=== PATIENT | female | born 1995 | race Hispanic/Latino ===

== ENCOUNTER 2024-04-05 02:08 | Emergency (ER) | payer BC ==
[~2024-04-05] VITALS: Ht 167.6 cm; Wt 97.5 kg
[2024-04-05 02:38] LABS: APPEARANCE,URINE CLEAR (CLEAR); BILIRUBIN,URINE NEGATIVE (NEGATIVE); COLOR,URINE COLORLESS (YELLOW); GLUCOSE, URINE (UA) NEGATIVE (NEGATIVE); KETONES,URINE NEGATIVE (NEGATIVE); LEUKOCYTE ESTERASE ,URINE NEGATIVE Leu/uL (NEGATIVE); NITRATE,URINE NEGATIVE (NEGATIVE); OCCULT BLOOD,URINE MODERATE (NEGATIVE); PH,URINE 6.5 (5.0-8.0); PROTEIN,URINE 300 mg/dL (NEGATIVE); UROBILINOGEN,URINE 0.2 mg/dL (0.2-1.0)
[2024-04-05 02:40] LABS: HCG,QUALITATIVE URINE NEGATIVE (NEGATIVE)
[2024-04-05 02:42] LABS: ADD UA MICROSCOPIC YES
[2024-04-05 02:43] LABS: SQUAMOUS EPITHELIAL CELL,UR RARE /HPF (0-2); WBC,URINE 0-1 /HPF (0-1)
--- NOTE | 2024-04-05 02:55 | NUR ---
patient to ultrasound
[2024-04-05] MEDS: morPHINE 4 MG SYG IVP ONE (03:12)
[2024-04-05] MEDS: ondanSETRON 4MG INJ IVP ONE (03:12)
[2024-04-05] MEDS: LACTATED RINGERS 1000ML 1,000 ML IV ONE (03:13)
[2024-04-05 03:24] LABS: BASOPHILS # (AUTO) 0.07 K/uL (0.00-0.20); BASOPHILS % (AUTO) 0.6 % (0.0-5.0); EOSINOPHILS # (AUTO) 0.31 K/uL (0.00-0.70); EOSINOPHILS % (AUTO) 2.6 % (0.0-8.0); HEMATOCRIT 37.8 % (36-48); IMMATURE GRANULOCYTE ABSOLUTE 0.05 K/uL (0-1); LYMPHOCYTES # (AUTO) 2.7 K/uL (1.0-4.8); LYMPHOCYTES % (AUTO) 22.3 % (21.0-51.0); MEAN CORPUSCULAR HEMOGLOBIN 27.9 pg (27.0-33.0); MEAN CORPUSCULAR HGB CONC 34.1 g/dL (32.0-36.0); MEAN CORPUSCULAR VOLUME 81.8 fL (79-99); MONOCYTES # (AUTO) 0.8 K/uL (0.1-1.0); MONOCYTES % (AUTO) 6.7 % (3.0-13.0); NEUTROPHILS # (AUTO) 8.1 K/uL (1.8-7.7); NEUTROPHILS % (AUTO) 67.4 % (40.0-77.0); PLATELET COUNT (AUTO) 330 K/uL (130-400); RED BLOOD CELL COUNT(AUTO) 4.62 MIL/uL (4.00-5.50); RED CELL DISTRIBUTION WIDTH 12.2 % (11.0-15.5); WHITE BLOOD COUNT (AUTO) 12.1 K/uL (4.8-10.8)
[2024-04-05 03:34] LABS: POTASSIUM 4.1 mmol/L (3.5-5.1)
[2024-04-05 03:39] LABS: BILIRUBIN,TOTAL 0.5 mg/dL (0.2-1.0); TOTAL PROTEIN, SERUM 6.2 g/dL (6.0-8.3)
[2024-04-05] MEDS ORDERED: ONDA-243 PO (05:22)
[2024-04-05] MEDS ORDERED: LOPE2CAP PO (05:22)
--- NOTE | 2024-04-05 05:23 | ERN ---
ED Note History of Present Illness Stated Complaint: DIARRHEA Chief Complaint: Diarrhea Time Seen by MD: 02:20 Allergies: Coded Allergies: promethazine (Unverified Allergy, Unknown, 04/05/24) Past Medical History Dictation 29-year-old female with past medical history of cyclic diarrhea, chronic kidney disease presents via private vehicle with concerns for presyncope. Patient states she has been having diarrhea for several hours without much relief. Patient has had seven diarrhea or bowel movements. Patient also reports concomitant nausea and vomiting. Patient denies fevers, nasal congestion, productive cough, chest pain, abdominal pain Past Medical History: Asthma, Hypertension, Renal Disese Surgical History: Other Surgical History Other: ENDOMETREOSIS SX LMP: Mar 31, 2024 Review of System Dictation See HPI Initial Vital Sign VS Vital Signs Date Time Temp Pulse Resp B/P (MAP) Pulse Ox O2 Delivery O2 Flow Rate FiO2 04/05/24 02:10 98.4 80 18 150/106 97 Room Air 0 04/05/24 03:24 21 Physical Exam Dictation Chronically ill-appearing, acutely weak appearing, abdomen is soft, nontender, non peritoneal, lungs clear to auscultation, normal oropharynx, regular heart rate and rhythm Results (Laboratory/Radiology) Laboratory/Radiology Laboratory Tests Test 04/05/24 02:29 04/05/24 03:13 Urine Color COLORLESS (YELLOW) Urine Appearance CLEAR (CLEAR) Urine pH 6.5 (5.0-8.0) Urine Specific [place] 1.011 (1.001-1.031) Urine Protein 300 mg/dL (NEGATIVE) H Urine Glucose (UA) NEGATIVE mg/dL (NEGATIVE) Urine Ketones NEGATIVE mg/dL (NEGATIVE) Urine Occult Blood MODERATE (NEGATIVE) H Urine Nitrate NEGATIVE (NEGATIVE) Urine Bilirubin NEGATIVE mg/dL (NEGATIVE) Urine Urobilinogen 0.2 mg/dL (0.2-1.0) Urine Leukocyte Esterase NEGATIVE [place]/uL Urine RBC 11-25 /HPF (0-1) H Urine WBC 0-1 /HPF (0-1) Urine Squamous Epithelial Cells RARE /HPF (0-2) Urine Bacteria None /HPF (None Seen) Urine HCG, Qualitative NEGATIVE (NEGATIVE) White Blood Count 12.1 K/uL (4.8-10.8) H Red Blood Count 4.62 MIL/uL (4.00-5.50) Hemoglobin 12.9 g/dL (12.0-16.0) Hematocrit 37.8 % (36-48) Mean Corpuscular Volume 81.8 fL (79-99) Mean Corpuscular Hemoglobin 27.9 pg (27.0-33.0) Mean Corpuscular Hemoglobin Concent 34.1 g/dL (32.0-36.0) Red Cell Distribution Width 12.2 % (11.0-15.5) Platelet Count 330 K/uL (130-400) Mean Platelet Volume 8.8 fL (7.5-10.5) Immature Granulocyte % (Auto) 0.4 % (0-1) Neutrophils (%) (Auto) 67.4 % (40.0-77.0) Lymphocytes (%) (Auto) 22.3 % (21.0-51.0) Monocytes (%) (Auto) 6.7 % (3.0-13.0) Eosinophils (%) (Auto) 2.6 % (0.0-8.0) Basophils (%) (Auto) 0.6 % (0.0-5.0) Neutrophils # (Auto) 8.1 K/uL (1.8-7.7) H Lymphocytes # (Auto) 2.7 K/uL (1.0-4.8) Monocytes # (Auto) 0.8 K/uL (0.1-1.0) Eosinophils # (Auto) 0.31 K/uL (0.00-0.70) Basophils # (Auto) 0.07 K/uL (0.00-0.20) Absolute Immature Granulocyte (auto 0.05 K/uL (0-1) Nucleated Red Blood Cells 0.0 % (0.0-0.19) Sodium Level 138 mmol/L (136-145) Potassium Level 4.1 mmol/L (3.5-5.1) Chloride Level 104 mmol/L (101-111) Carbon Dioxide Level 24 mmol/L (21-32) Blood Urea Nitrogen 25 mg/dL (7-18) H Creatinine 2.0 mg/dL (0.5-1.0) H Glomerular Filtration Rate Calc 34 mL/min (>90) Random Glucose 98 mg/dL (70-105) Total Calcium 8.8 mg/dL (8.5-10.1) Total Bilirubin 0.5 mg/dL (0.2-1.0) Aspartate Amino Transf (AST/SGOT) 13 U/L (10-37) Alanine Aminotransferase (ALT/SGPT) 24 U/L (12-78) Alkaline Phosphatase 105 U/L (50-136) Total Protein 6.2 g/dL (6.0-8.3) Albumin 3.0 g/dL (3.5-5.0) L Lipase 43 U/L (16-77) ED Course ED Course Orders Procedure Category Date Status Time Cbc With Differential LAB 04/05/24 Complete 02:20 Comprehensive LAB 04/05/24 Complete Metabolic Panel 02:20 ,Urine Test LAB 04/05/24 Complete 02:20 Urinalysis Profile LAB 04/05/24 Complete 02:20 Lactated Ringers PHA 04/05/24 Complete 1000ml (Lactated 02:30 Morphine 4mg Syg PHA 04/05/24 Complete (Morphine 4mg Syg) 02:30 Ondansetron 4mg Inj PHA 04/05/24 Complete (Zofran 4mg Inj) 02:30 Ct Abdomen/Pelvis W/O CT 04/05/24 Taken Contrast 02:20 Lipase LAB 04/05/24 Complete 02:20 Current Medications Medications (Trade) Dose Ordered Sig/Mattie Route PRN Reason Start Time Stop Time Status Last Admin Dose Admin Lactated Ringer's 1,000 ml @ 0 mls/hr ONCE ONCE IV 04/05/24 02:30 04/05/24 02:31 DC 04/05/24 03:13 Morphine Sulfate (morPHINE 4MG SYG) 4 mg ONCE ONCE IVP 04/05/24 02:30 04/05/24 02:31 DC 04/05/24 03:12 Ondansetron HCl (zoFRAN 4MG INJ) 4 mg ONCE ONCE IVP 04/05/24 02:30 04/05/24 02:31 DC 04/05/24 03:12 Vital Signs Date Time Temp Pulse Resp B/P (MAP) Pulse Ox O2 Delivery O2 Flow Rate FiO2 04/05/24 03:24 97.9 72 18 124/80 99 Room Air* 0 21 04/05/24 02:10 98.4 80 18 150/106 97 Room Air 0 Medical Decision Making MDM ddx: EVER versus flu versus COVID versus ectopic versus acute pancreatitis Lipase within normal limits. Doubt acute pancreatitis. HCG negative for . Doubt ectopic . UA negative for infection. Doubt UTI. CT abdomen pelvis shows no acute intra-abdominal findings. Doubt appendicitis. Doubt small-bowel obstruction. White blood cell count within normal limits. Doubt bacterial infection. Chemistry shows no for EVER. Patient is given IV fluids and symptoms improved. Rapid flu negative. Rapid COVID negative Upon re-evaluation, patient remains comfortable. Discussed ED workup patient. Recommend close primary care follow up. Return precautions given. Invited answered all questions prior discharge. DX & DISP Disposition: Discharge Departure Impression: Primary Impression: Acute nausea with nonbilious vomiting Additional Impressions: Acute diarrhea, EVER (acute kidney injury) Critical Time: 30 minutes Condition: Stable Scripts Loperamide HCl (Loperamide) 2 Mg Capsule 2 MG PO 5XDAY for diarrhea, #10 CAP 0 Refills Take 2 tablets initially and then 1 tablet with every loose bowel movement. Prov: ANSELMO SHERIFF DO 04/05/24 Ondansetron (Ondansetron Odt) 4 Mg Tab.rapdis 4 MG PO ONCE, #30 TAB Prov: ANSELMO SHERIFF DO 04/05/24 Additional Instructions: Please return to emergency department immediately if you develop sudden loss of consciousness, sudden weakness, can not eat or drink, if continuous nausea and vomiting despite medications. Please follow up primary care physician within the next available appointment. Please drink lots of fluids. Referrals: JEANCARLOS STAHL MD (PCP) ANSELMO SHERIFF DO Apr 05, 2024 05:23
[2024-04-05 05:26] VITALS: BP 115/65; PULSE 75; RESP 18; TEMP 98; O2SAT 98
--- NOTE | 2024-04-05 08:20 | HMCIMG ---
Exam Type: CT ABDOMEN/PELVIS W/O CONTRAST Clinical Information: ABD PAIN Comparison: None CT Dose Index (CTDI): 10.20 mGy Dose Length Product (DLP): 530.00 total mGy-cm PROTOCOL: Routine noncontrast helical scanning of the abdomen and pelvis was performed at 5mm collimation. Findings: No evidence of nephro or ureterolithiasis is found. No hydronephrosis or ureteral dilatation is seen. The lung bases are clear. The stomach is unremarkable. It shows no wall thickening. No gross ulceration is seen. It is not overly distended. There are no surrounding inflammatory changes. No wall lesions are identified to suggest cancer. The spleen is unremarkable. It is not enlarged. The pancreas shows normal anatomy. It is not fatty replaced. It shows no lesions. The pancreatic duct is not dilated. The gallbladder is unremarkable. It shows no cholelithiasis. The gallbladder wall is normal in thickness. There is no pericholecystic fluid. The is no acute or chronic inflammation noted. The adrenal glands are unremarkable. There is no enlargement. No lesions are noted. The liver is unremarkable. It shows no focal masses. The appendix is unremarkable. It shows no evidence of inflammation. No appendicolith is seen. The small bowel is unremarkable. There is no evidence of dilatation to suggest obstruction. No evidence of adynamic ileus is seen. There is no small bowel wall thickening to suggest enteritis. The colon is unremarkable. The urinary bladder is unremarkable. There is no wall thickening to suggest tumor or inflammation. There are no intraluminal calculi. There are no diverticula. There is no evidence of chronic bladder outlet obstruction. There is no evidence of urinary bladder distention to suggest urinary retention. The other pelvic structures are unremarkable. The bony and vascular structures are unremarkable for the patient's age. IMPRESSION: NEGATIVE CT SCAN OF THE ABDOMEN AND PELVIS. NO RENAL STONES. NO ACUTE PATHOLOGY OR INFLAMMATION SEEN. This study was performed using dose reduction techniques to include automated exposure control and/or adjustment of the mA and/or kV according to patient size.
== END 2024-04-05 05:40 | disposition home or self-care (01) ==
LOC: EDH 02:08
DX: N17.9 Acute kidney failure, unspecified (principal); I12.9 Hypertensive chronic kidney disease with stage 1 through stage 4 chronic kidney disease, or unspecified chronic kidney disease; N18.9 Chronic kidney disease, unspecified; J45.909 Unspecified asthma, uncomplicated
CPT/HCPCS: 99284; 74176; 96374; 96375; 80053; 83690; 85025; 81001; 81025; 36415; J7120; J2405; J2270

== ENCOUNTER 2024-12-13 01:27 | Emergency (ER) | payer BC ==
[~2024-12-13] VITALS: Ht 167.6 cm; Wt 96.2 kg
[~2024-12-13 01:27] MED LIST: LOPE2CAP PO; ONDA-243 PO
--- NOTE | 2024-12-13 01:33 | NUR ---
UA CUP PROVIDED
[2024-12-13] MEDS: LACTATED RINGERS 1000ML IV STA (02:03)
--- NOTE | 2024-12-13 02:09 | ERN ---
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 She is unable to sleep and comes in for symptom relief. No fevers or chills no emesis no diarrhea. She is wondering if she is dehydrated. Her urine is concentrated and frequent. Allergies: Coded Allergies: promethazine (Unverified Allergy, Unknown, 04/05/24) Home Meds Active Scripts Loperamide HCl (Loperamide) 2 Mg Capsule, 2 MG PO 5XDAY for diarrhea, #10 CAP 0 Refills Take 2 tablets initially and then 1 tablet with every loose bowel movement. Prov:CARRIEZAYANSELMO Jonathan RFEEMAN 04/05/24 Ondansetron (Ondansetron Odt) 4 Mg Tab.rapdis, 4 MG PO ONCE, #30 TAB Prov:SHARITAANSELMO Jonathan FREEMAN 04/05/24 Past Medical History Past Medical History: Asthma, Hypertension, Renal Disese Medical History Other: IgA nephropathy Past Surgical History: Other Surgical History Other: ENDOMETREOSIS SX Constitutional: (-) chills, (-) diaphoresis, (-) fever, (-) malaise, (-) weakness, (-) other documentation EENTM: (-) eye pain, (-) blurred vision, (-) tearing, (-) double vision, (-) ear pain, (-) ear discharge, (-) nose pain, (-) nose congestion, (-) throat pain, (-) Throat swelling, (-) mouth pain, (-) tooth pain, (-) mouth swelling, (-) other documentation Respiratory: (-) cough, (-) orthopnea, (-) short of breath, (-) stridor, (-) w heezing, (-) other documentation Cardiovascular: (-) chest pain, (-) edema, (-) palpitations, (-) syncope, (-) dyspnea on exertion, (-) other documentation Gastrointestinal/Abdominal: (+) nausea Genitourinary: (-) vaginal discharge, (-) vaginal bleeding, (-) dysuria, (-) frequency, (-) hematuria, (-) pain, (-) other documentation Physical Exam General Appearance: (+) mild distress Orientation: (+) alert, (+) oriented x 3 Head/Face Trauma: No Eye: bilateral eye normal inspection, bilateral eye PERRL, bilateral eye EOMI Ear, Nose, Throat: (+) hearing grossly normal, (+) normal ENT inspection, (+) moist mucous membraine Neck: (+) normal inspection, (+) supple, (+) full range of motion Respiratory: (+) chest non-tender, (+) lungs clear, (+) well ventilated Heart: (+) regular, (+) no gallop Vascular: (+) no edema, (+) normal peripheral pulse Gastrointestinal: (+) soft, (+) non-tender, (+) bowel sound present Results Laboratory and Microbiology Lab and Micro Result Laboratory Tests Test 12/13/24 02:15 White Blood Count 13.8 K/uL (4.8-10.8) H Red Blood Count 4.12 MIL/uL (4.00-5.50) Hemoglobin 11.7 g/dL (12.0-16.0) L Hematocrit 34.4 % (36-48) L Mean Corpuscular Volume 83.5 fL (79-99) Mean Corpuscular Hemoglobin 28.4 pg (27.0-33.0) Mean Corpuscular Hemoglobin Concent 34.0 g/dL (32.0-36.0) Red Cell Distribution Width 12.4 % (11.0-15.5) Platelet Count 303 K/uL (130-400) Mean Platelet Volume 8.9 fL (7.5-10.5) Immature Granulocyte % (Auto) 0.7 % (0-1) Neutrophils (%) (Auto) 73.7 % (40.0-77.0) Lymphocytes (%) (Auto) 16.6 % (21.0-51.0) L Monocytes (%) (Auto) 5.7 % (3.0-13.0) Eosinophils (%) (Auto) 2.8 % (0.0-8.0) Basophils (%) (Auto) 0.5 % (0.0-5.0) Neutrophils # (Auto) 10.1 K/uL (1.8-7.7) H Lymphocytes # (Auto) 2.3 K/uL (1.0-4.8) Monocytes # (Auto) 0.8 K/uL (0.1-1.0) Eosinophils # (Auto) 0.39 K/uL (0.00-0.70) Basophils # (Auto) 0.07 K/uL (0.00-0.20) Absolute Immature Granulocyte (auto 0.09 K/uL (0-1) Nucleated Red Blood Cells 0.0 % (0.0-0.19) Sodium Level 136 mmol/L (136-145) Potassium Level 4.6 mmol/L (3.5-5.1) Chloride Level 105 mmol/L (101-111) Carbon Dioxide Level 22 mmol/L (21-32) Blood Urea Nitrogen 39 mg/dL (7-18) H Creatinine 3.1 mg/dL (0.5-1.0) H Glomerular Filtration Rate Calc 20 mL/min (>90) Random Glucose 96 mg/dL (70-105) Lactic Acid Level 1.0 mmol/L (0.8-2.5) Total Calcium 8.0 mg/dL (8.5-10.1) L Magnesium Level 2.10 mg/dL (1.80-2.40) Total Bilirubin 0.3 mg/dL (0.2-1.0) Aspartate Amino Transf (AST/SGOT) 17 U/L (10-37) Alanine Aminotransferase (ALT/SGPT) 22 U/L (12-78) Alkaline Phosphatase 95 U/L (50-136) Total Protein 6.5 g/dL (6.0-8.3) Albumin 3.2 g/dL (3.5-5.0) L MDM MDM: Differential diagnosis: Gastroenteritis, dehydration, electrolyte disorder, UTI, Rationale: Tests considered and ordered secondary to shared decision making include: Previous outside records reviewed: Old ER visits. Risk of complication and/or morbidity or mortality of patient management: None Medications-Per medication reconciliation Need for hospitalization: Patient does meet criteria for hospitalization. Need for emergency major/minor surgery: No There are no social concerns with this patient. Prescription drug management Prescriptions will include symptomatic care Patient's prior external medical records from other ER visits were reviewed by me as indicated. Prior testing and results from previous visits were reviewed. Prior tests were taken into account with medical decision making and resource utilization, independent historian/historians were used to obtain complete medical history. I independently interpreted the test that were performed, results were reviewed by me and considered findings on radiology if ordered. And feels much better with the fluid. Her CBC does show an elevated white blood cell count. She may have a urinary tract infection. Unfortunately the patient has to go to work and she has not provided us with a urine sample. I will give her empiric therapy for a urinary tract infection and discharge her from the [facility] room. ED Course Orders Procedure Category Date Status Time 12 Lead Ekg Tracing- EKG 12/13/24 Logged Technical 01:54 Comprehensive LAB 12/13/24 Complete Metabolic Panel 01:54 Cbc With Differential LAB 12/13/24 Complete 01:54 Lactic Acid LAB 12/13/24 Complete 01:54 ,Urine Test LAB 12/13/24 Logged 01:54 Urinalysis Profile LAB 12/13/24 Logged 01:54 Lactated Ringers PHA 12/13/24 Complete 1000ml (Lactated 01:54 Magnesium LAB 12/13/24 Complete 01:54 Testing, LAB 12/13/24 Logged Serum Hcg 02:19 0.9%Nacl 1000ml (Ns PHA 12/13/24 Complete 1000ml) 04:00 Current Medications Medications (Trade) Dose Ordered Sig/Mattie Route PRN Reason Start Time Stop Time Status Last Admin Dose Admin Lactated Ringer's (Lactated Ringers 1000ml) 1,000 ml BOLUS STAT IV 12/13/24 01:54 12/13/24 01:57 DC 12/13/24 02:03 Sodium Chloride 1,000 ml @ 0 mls/hr ONCE ONCE IV 12/13/24 04:00 12/13/24 04:01 DC 12/13/24 04:43 Vital Signs Date Time Temp Pulse Resp B/P (MAP) Pulse Ox O2 Delivery O2 Flow Rate FiO2 12/13/24 02:15 98.4 75 18 124/66 99 Room Air* 0 21 12/13/24 01:29 98.1 95 20 142/90 100 Room Air DX & DISP Disposition: Discharge Departure Impression: Primary Impression: Acute nausea with nonbilious vomiting Additional Impression: EVER (acute kidney injury) Condition: Stable Scripts Nitrofurantoin Macrocrystal (Nitrofurantoin) 100 Mg Capsule 1 CAP PO BID for 7 Days, #14 CAP 0 Refills Prov: NEL BARNHART MD 12/13/24 Additional Instructions: I do not know if you came in with a urinary tract infection or simple dehydration or gastroenteritis. Any one of those things could explain the symptoms that you have. I am glad you feel better with the fluids we have given you. I am sending a prescription to your pharmacy for antibiotic therapy for a presumed urinary tract infection. Please follow-up with her primary care physician if your symptoms do not improve in the next few days. Referrals: JEANCARLOS STAHL MD (PCP) NEL BARNHART MD Dec 13, 2024 02:09
[2024-12-13 02:22] LABS: IMMATURE GRANULOCYTE ABSOLUTE 0.09 K/uL (0-1); NUCLEATED RED BLOOD CELLS 0.0 % (0.0-0.19); PLATELET COUNT (AUTO) 303 K/uL (130-400); RED BLOOD CELL COUNT(AUTO) 4.12 MIL/uL (4.00-5.50); RED CELL DISTRIBUTION WIDTH 12.4 % (11.0-15.5); WHITE BLOOD COUNT (AUTO) 13.8 K/uL (4.8-10.8)
[2024-12-13 03:09] LABS: CREATININE 3.1 mg/dL (0.5-1.0); GLOMERULAR FILTR. RATE CALC 20.0 mL/min (>90); GLUCOSE,RANDOM 96.0 mg/dL (70-105); SODIUM SERUM 136.0 mmol/L (136-145); UREA NITROGEN, BLOOD 39.0 mg/dL (7-18)
[2024-12-13 03:15] LABS: ASPARTATE AMINOTRANSFERASE 17.0 U/L (10-37); TOTAL PROTEIN, SERUM 6.5 g/dL (6.0-8.3)
[2024-12-13] MEDS: 0.9%NACL 1000ML 1,000 ML IV ONE (04:43)
[2024-12-13] MEDS ORDERED: NITR100C PO (04:49)
[2024-12-13 04:54] VITALS: BP 125/65; PULSE 72; RESP 18; TEMP 98.5; O2SAT 100
--- NOTE | 2024-12-13 06:32 | EKG ---
[facility] Test Date: 2024-12-13 Test Time: 02:38:41 Pat Name: CAROL COY Department: ED Room: Gender: F [employer]: [id number] : 1995 Requested By: NEL BARNHART Order Number: [id number] Reading MD: Sissy Remy Measurements Intervals [place] Rate: 86 P: 38 OR: 132 QRS: -1 QRSD: 106 T: 73 QT: 384 QTc: 459 Interpretive Statements Sinus rhythm Inferior infarct, old No previous ECG available for comparison Electronically Signed On 12-13-2024 14:34:17 CDT by Sissy Remy Please click the below link to view image of tracing.
== END 2024-12-13 05:01 | disposition home or self-care (01) ==
LOC: EDH 01:27
DX: R11.2 Nausea with vomiting, unspecified (principal); N17.9 Acute kidney failure, unspecified; J45.909 Unspecified asthma, uncomplicated; I10 Essential (primary) hypertension; Z79.899 Other long term (current) drug therapy
CPT/HCPCS: 99284; 83735; 80053; 84703; 85025; 83605; 36415; 93005; J7120; J7030